=== PATIENT | female | born 1940 | race Hispanic/Latino ===

== ENCOUNTER 2021-07-24 08:57 | Emergency (ER) | payer MEDICARE, OTHER ==
[~2021-07-24] VITALS: Ht 167.6 cm; Wt 65.8 kg
[2021-07-24 10:23] LABS: BASOPHILS % 0.2 % (0.0-1.0); EOSINOPHILS % 0.5 % (0.0-6.0); HEMATOCRIT 37.8 % (34.2-44.1); HEMOGLOBIN 12.2 g/dL (12.0-16.0); LYMPHOCYTES # (AUTO) 1.1 (1.0-3.2); MEAN CORPUSCULAR HEMOGLOBIN 28.6 pg (28-32); MEAN CORPUSCULAR HGB CONC 32.3 g/dL (31-35); MEAN CORPUSCULAR VOLUME 88.7 fL (81-99); MONOCYTES # (AUTO) 0.8 (0.2-0.8); MONOCYTES % 9.1 % (4.4-11.3); NEUTROPHILS # (AUTO) 6.6 (2.1-6.9); PLATELET COUNT 226 x10e3/uL (140-360); RED BLOOD COUNT 4.26 x10e6/uL (3.6-5.1)
[2021-07-24 10:44] LABS: ALBUMIN 3.8 g/dL (3.5-5.0); ANION GAP 15.9 mmol/L (8-16); CALCIUM 9.1 mg/dL (8.4-10.2); CREATININE, SERUM 1.24 mg/dL (0.57-1.11); POTASSIUM 3.9 mmol/L (3.5-5.1)
[2021-07-24 10:49] LABS: INR 0.93; PROTHROMBIN TIME 13.3 seconds (11.9-14.5)
[2021-07-24 10:50] LABS: PARTIAL THROMBOPLASTIN TIME 27.8 seconds (23.8-35.5)
[2021-07-24 10:51] LABS: CREATINE KINASE MB 2.2 ng/mL (0-5.0)
== END 2021-07-24 11:51 | disposition home or self-care (01) ==
LOC: ER 09:20
DX: R05.9 Cough, unspecified (principal); J10.1 Influenza due to other identified influenza virus with other respiratory manifestations; E11.65 Type 2 diabetes mellitus with hyperglycemia; I10 Essential (primary) hypertension; I50.9 Heart failure, unspecified; E78.5 Hyperlipidemia, unspecified; Z20.822 Contact with and (suspected) exposure to COVID-19; R94.31 Abnormal electrocardiogram [ECG] [EKG]
CPT/HCPCS: 36415; 71045; 80053; 82550; 82553; 83880; 84484; 85025; 85610; 85730; 93005; 99283; U0002

== ENCOUNTER 2022-08-23 22:38 | Inpatient (IN) | payer MEDICARE, OTHER ==
[~2022-08-23] VITALS: Ht 167.6 cm; Wt 65.8 kg
[2022-08-23] MEDS ORDERED: DEXTROSE 50% SYRINGE 50 ML IV ONE (23:00)
[2022-08-23] MEDS ORDERED: DEXTROSE 50% SYRINGE 50 ML IV STA (23:01)
[2022-08-23 23:33] LABS: BASOPHILS % 0.4 % (0.0-1.0); EOSINOPHILS # (AUTO) 0.4 (0.0-0.4); EOSINOPHILS % 3.9 % (0.0-6.0); HEMATOCRIT 33.2 % (34.2-44.1); HEMOGLOBIN 10.3 g/dL (12.0-16.0); LYMPHOCYTES # (AUTO) 1.3 (1.0-3.2); LYMPHOCYTES % 13.7 % (18.0-39.1); MEAN CORPUSCULAR HEMOGLOBIN 27.7 pg (28-32); MEAN CORPUSCULAR VOLUME 89.2 fL (81-99); MONOCYTES # (AUTO) 0.7 (0.2-0.8); MONOCYTES % 7.4 % (4.4-11.3); NEUTROPHILS # (AUTO) 7.2 (2.1-6.9); NEUTROPHILS % 74.2 % (38.7-80.0); PLATELET COUNT 258 x10e3/uL (140-360); RED BLOOD COUNT 3.72 x10e6/uL (3.6-5.1); RED CELL DISTRIBUTION WIDTH 14.3 % (11.7-14.4)
[2022-08-23 23:47] LABS: ALBUMIN 3.3 g/dL (3.5-5.0); ANION GAP 12.5 mmol/L (8-16); CALCIUM 8.9 mg/dL (8.4-10.2); CREATININE, SERUM 1.25 mg/dL (0.57-1.11); POTASSIUM 4.5 mmol/L (3.5-5.1)
[2022-08-23 23:54] LABS: CREATINE KINASE MB 3.2 ng/mL (0-5.0)
[2022-08-24] VITALS (10 sets, daily range): BP systolic 128–161; BP diastolic 6–73; PULSE 63–70; RESP 18; TEMP 97.6–98.6; O2SAT 96–100
[2022-08-24] MEDS ORDERED: DEXTROSE 50% SYRINGE 50 ML IV PRN ×2 (01:15→11:45)
[2022-08-24] MEDS ORDERED: ONDANSETRON HCL INJ 2MG/ML 2ML 2 MG/ML VIAL IV PRN (01:15)
[2022-08-24] MEDS ORDERED: SIMETHICONE 80 MG CHEW PO PRN (05:15)
[2022-08-24] MEDS ORDERED: DOCUSATE SODIUM 100 MG CAP PO PRN (05:15)
[2022-08-24] MEDS ORDERED: ACETAMINOPHEN 325 MG TAB PO PRN (05:15)
[2022-08-24 06:08] LABS: BASOPHILS # (AUTO) 0.1 (0.0-0.1); BASOPHILS % 0.5 % (0.0-1.0); EOSINOPHILS # (AUTO) 0.4 (0.0-0.4); EOSINOPHILS % 4.5 % (0.0-6.0); HEMOGLOBIN 10.4 g/dL (12.0-16.0); LYMPHOCYTES # (AUTO) 1.6 (1.0-3.2); LYMPHOCYTES % 16.7 % (18.0-39.1); MEAN CORPUSCULAR HGB CONC 31.5 g/dL (31-35); MEAN CORPUSCULAR VOLUME 88.7 fL (81-99); MONOCYTES # (AUTO) 0.8 (0.2-0.8); MONOCYTES % 8.1 % (4.4-11.3); NEUTROPHILS # (AUTO) 6.8 (2.1-6.9); NEUTROPHILS % 69.9 % (38.7-80.0); PLATELET COUNT 248 x10e3/uL (140-360); RED BLOOD COUNT 3.72 x10e6/uL (3.6-5.1); RED CELL DISTRIBUTION WIDTH 14.2 % (11.7-14.4)
[2022-08-24 06:20] LABS: ANION GAP 13.9 mmol/L (8-16); CREATININE, SERUM 1.16 mg/dL (0.57-1.11); POTASSIUM 4.9 mmol/L (3.5-5.1)
[2022-08-24 06:21] LABS: CHOL/HDL RATIO 3.2 (3.0-3.6)
[2022-08-24] MEDS ORDERED: FAMOTIDINE 20 MG TAB PO ONE (07:30)
[2022-08-24] MEDS ORDERED: MELOXICAM7.5 MG PO (11:14)
[2022-08-24] MEDS ORDERED: LIPITOR20 MG PO (11:14)
[2022-08-24] MEDS ORDERED: METOPROLOL TART50 MG PO (11:14)
[2022-08-24] MEDS ORDERED: METFORMIN HCL500 MG PO (11:14)
[2022-08-24] MEDS ORDERED: TOVIAZ4 MG PO (11:14)
[2022-08-24] MEDS ORDERED: VITAMIN D350 MCG PO (11:14)
[2022-08-24] MEDS ORDERED: BASAGLAR K100 UNIT/1 SQ (11:14)
[2022-08-24] MEDS ORDERED: BENICAR20 MG PO (11:14)
[2022-08-24] MEDS ORDERED: NOVOLOG100 UNIT/1 SC (11:14)
[2022-08-24] MEDS: INSULIN REGULAR, HUMAN 100 UNIT/1 ML SQ SCH ×3 (12:33→21:59)
[2022-08-24] MEDS: FAMOTIDINE 20 MG TAB PO SCH (16:33)
[2022-08-24] MEDS ORDERED: NAMENDA5 MG PO (17:16)
[2022-08-25 05:48] LABS: BASOPHILS # (AUTO) 0.1 (0.0-0.1); EOSINOPHILS # (AUTO) 0.6 (0.0-0.4); EOSINOPHILS % 7.7 % (0.0-6.0); HEMATOCRIT 32.2 % (34.2-44.1); HEMOGLOBIN 10.4 g/dL (12.0-16.0); LYMPHOCYTES # (AUTO) 1.8 (1.0-3.2); LYMPHOCYTES % 24.5 % (18.0-39.1); MEAN CORPUSCULAR HEMOGLOBIN 28.3 pg (28-32); MEAN CORPUSCULAR HGB CONC 32.3 g/dL (31-35); MEAN CORPUSCULAR VOLUME 87.7 fL (81-99); MONOCYTES # (AUTO) 0.8 (0.2-0.8); MONOCYTES % 11.3 % (4.4-11.3); NEUTROPHILS % 55.2 % (38.7-80.0); PLATELET COUNT 272 x10e3/uL (140-360); RED BLOOD COUNT 3.67 x10e6/uL (3.6-5.1)
[2022-08-25 05:50] LABS: ANION GAP 11.4 mmol/L (8-16); CALCIUM 9.3 mg/dL (8.4-10.2); CREATININE, SERUM 1.15 mg/dL (0.57-1.11); POTASSIUM 4.4 mmol/L (3.5-5.1)
[2022-08-25 06:12] LABS: ALBUMIN 3.2 g/dL (3.5-5.0)
[2022-08-25] MEDS: INSULIN REGULAR, HUMAN 100 UNIT/1 ML SQ SCH (07:30)
[2022-08-25 08:44] VITALS: BP 120/38; PULSE 60; RESP 14; TEMP 97.4; O2SAT 100
[2022-08-25] MEDS: FAMOTIDINE 20 MG TAB PO SCH (09:43)
[2022-08-25 10:16] VITALS: BP 120/38; PULSE 60; RESP 14; TEMP 97.4; O2SAT 100
== END 2022-08-25 10:48 | disposition home or self-care (01) | DRG 637 ==
LOC: ER 22:45 → ERHOLD 08-24 01:09 → MED/SURG2 08-24 09:42
PROVIDERS: ADMIT Internal Medicine; ATTEND Internal Medicine
DX: E11.649 Type 2 diabetes mellitus with hypoglycemia without coma (principal); G93.41 Metabolic encephalopathy; E78.5 Hyperlipidemia, unspecified; I11.0 Hypertensive heart disease with heart failure; M17.11 Unilateral primary osteoarthritis, right knee; I50.9 Heart failure, unspecified; Z79.84 Long term (current) use of oral hypoglycemic drugs; Z90.49 Acquired absence of other specified parts of digestive tract; Z79.4 Long term (current) use of insulin; Z28.21 Immunization not carried out because of patient refusal; Z20.822 Contact with and (suspected) exposure to COVID-19
CPT/HCPCS: 0223U; 36415; 70450; 71046; 72125; 80048; 80053; 80061; 82550; 82553; 82948; 83036; 84484; 85025; 93005; 99284; J7799